=== PATIENT | female | born 1965 | race Caucasian/White ===

== ENCOUNTER → 2017-05-28 | Outpatient (REF) | payer BC ==
[~2017-05-28] MED LIST: KRIL300C PO
== END ==
LOC: M LAB REF 17:50
PROVIDERS: ATTEND Specialist
DX: N92.0 Excessive and frequent menstruation with regular cycle (principal)

== ENCOUNTER → 2017-06-03 | Outpatient (CLI) | payer BC ==
--- NOTE | 2017-06-03 16:51 | REP ---
PELVIC ULTRASOUND: Real-time sonographic evaluation of the pelvis performed utilizing transabdominal and endovaginal technique. The urinary bladder measures 9.7 x 3.4 x 7.1 cm. Uterus measures 9.2 x 4.9 x 5.4 cm. Endometrium is heterogeneous and diffusely thickened with multiple tiny cystic areas within it. AP diameter is maximally 18 mm. Borders are not well defined. Right ovary measures 4.7 x 2.4 x 3.5 cm. Left ovary measures 3.3 x 2.6 x 3.3 cm. Small cystic structures in the right ovary probably represent follicles with the largest measuring 2.7 x 1.9 x 1.7 cm. There is no other evidence of adnexal mass or free fluid. There is blood flow seen in each ovary with duplex Doppler evaluation, with no torsion, RI right ovary 0.52 and left ovary 0.49. IMPRESSION: Thickened heterogeneous endometrium with multiple tiny cystic areas. Borders are ill defined. I cannot exclude an underlying endometrial hyperplasia or neoplasm. I cannot exclude adenomyosis. Signed by Kevin Goodwin MD 06/03/2017 05:11 P
== END ==
LOC: M RAD 12:10
PROVIDERS: ATTEND Specialist
DX: N92.0 Excessive and frequent menstruation with regular cycle (principal)

== ENCOUNTER 2017-06-20 12:51 | Day surgery (SDC) | payer BC ==
[~2017-06-20] VITALS: Ht 165.1 cm; Wt 76.2 kg
[2017-06-20] MEDS ORDERED: LR 1,000 ML IV ONE (13:00)
[2017-06-20 13:31] LABS: MEAN CORPUSCULAR HEMOGLOBIN 27.1 pg (27.0-33.0); MEAN CORPUSCULAR HGB CONC 33.7 g/dl (32.0-36.5); MEAN CORPUSCULAR VOLUME 80.3 fl (80.0-96.0); RED CELL DISTRIBUTION WIDTH 13.9 % (11.5-14.5); WHITE BLOOD COUNT 5.8 K/mm3 (4.0-10.0)
[2017-06-20 13:47] LABS: CONTROL LINE UCG INT CTR LINE PRESENT
[2017-06-20] MEDS ORDERED: MIDAZOLAM INJ 2 MG/2 ML VIAL (J2250) As Ordered ONE (14:05)
[2017-06-20] MEDS ORDERED: fentaNYL 100 MCG/2 ML INJECTION (J3010) As Ordered ONE (14:05)
[2017-06-20] MEDS ORDERED: LIDOCAINE 2% INJ 100 MG/5 ML SDV (FOR ANES.) As Ordered ONE (14:05)
[2017-06-20] MEDS ORDERED: PROPOFOL 200 MG/20 ML VIAL As Ordered ONE (14:05)
[2017-06-20] MEDS ORDERED: LIDOCAINE 1% SDV INJ 30 ML VIAL As Ordered ONE (14:52)
[2017-06-20 16:08] VITALS: BP 121/78
--- NOTE | 2017-06-20 21:39 | RO ---
DATE OF PROCEDURE: 06/20/2017 PREPROCEDURE DIAGNOSIS: Menorrhagia. POSTPROCEDURE DIAGNOSIS: Menorrhagia. PROCEDURE: Hysteroscopy, D and C, polypectomy. SURGEON: Iban Alamo MD [employer]: ANESTHESIA: Local with sedation. ESTIMATED BLOOD LOSS: Minimal. FINDINGS: Multiple small and large size endometrial polyps throughout the endometrial cavity. Otherwise normal appearing endometrial cavity. DESCRIPTION OF PROCEDURE: The patient was taken to the operating room where intravenous (IV) sedation was given. She was prepped and draped in the sterile fashion in the dorsal lithotomy position. A speculum was placed in the vagina. The cervix was injected circumferentially 20 mL of 1% Lidocaine. The anterior lip of the cervix was grasped with a tenaculum. Cervix was dilated with tape and dilators. A diagnostic hysteroscope was using normal saline is placed through the internal os. Visualization of the endometrial cavity revealed the findings noted. Sharp curettage was performed and numerous endometrial polyps were removed. Polyp forceps were used to grasp polyps. Uterine cavity was deemed to be free of polyps at the end of the procedure. Specimen was sent for pathology. All instruments were removed. Sponge and instrument counts were correct.
== END 2017-06-20 16:20 | disposition home or self-care (01) ==
LOC: M SDC 12:51
PROVIDERS: ATTEND Specialist
DX: N92.0 Excessive and frequent menstruation with regular cycle (principal); N85.00 Endometrial hyperplasia, unspecified; K21.9 Gastro-esophageal reflux disease without esophagitis; Z88.0 Allergy status to penicillin
CPT/HCPCS: 36415; 58558; 84703; 85027; 88305; J2250; J3010

== ENCOUNTER → 2017-11-14 | Outpatient (REF) | payer BC | LOC: M LAB REF 19:56 | DX: N93.8 Other specified abnormal uterine and vaginal bleeding (principal) | CPT/HCPCS: 88304 ==

== ENCOUNTER → 2018-11-23 | Outpatient (REF) | payer BC | LOC: M LAB REF 17:20 | PROVIDERS: ATTEND Specialist | DX: N93.8 Other specified abnormal uterine and vaginal bleeding (principal) ==

== ENCOUNTER → 2020-11-06 | Outpatient (CLI) | payer BC | LOC: M LABSMTC 12:54 | PROVIDERS: ATTEND Pediatrics | DX: Z20.822 Contact with and (suspected) exposure to COVID-19 (principal) ==

== ENCOUNTER → 2025-08-23 | Outpatient (REF) | payer BC ==
[2025-08-25 09:53] LABS: HPV APTIMA Not Detected (Not Detected)
== END ==
LOC: M PLALAB 15:10
PROVIDERS: ATTEND Physician Assistant
DX: Z12.4 Encounter for screening for malignant neoplasm of cervix (principal)
CPT/HCPCS: 87624; G0123